=== PATIENT | female | born 1955 | race Caucasian/White ===

== ENCOUNTER 2020-08-24 16:06 | Inpatient (IN) | payer MEDICARE, OTHER ==
[~2020-08-24] VITALS: Ht 165.1 cm; Wt 45.4 kg
[2020-08-24] MEDS ORDERED: SODIUM CHLORIDE 0.9% 1000ML 1,000 ML IV STA (16:29)
[2020-08-24] MEDS ORDERED: ONDANSETRON HCL INJ 2MG/ML 2ML 2 MG/ML VIAL IV STA (16:29)
[2020-08-24] MEDS ORDERED: PANTOPRAZOLE 40 MG 10ML VIAL IV STA (16:29)
[2020-08-24] MEDS ORDERED: NALOXONE HCL INJ 0.4 MG/ML AMP ONE (16:35)
[2020-08-24] MEDS ORDERED: SODIUM CHLORIDE 0.9% 1000ML 1,000 ML ONE (16:35)
[2020-08-24] MEDS ORDERED: NALOXONE HCL INJ 0.4 MG/ML AMP IV ONE (16:45)
[2020-08-24 16:49] LABS: BASOPHILS % 0.1 % (0.0-1.0); EOSINOPHILS # (AUTO) 0.1 (0.0-0.4); EOSINOPHILS % 0.8 % (0.0-6.0); HEMATOCRIT 36.4 % (34.2-44.1); HEMOGLOBIN 12.2 g/dL (12.0-16.0); LYMPHOCYTES # (AUTO) 2.6 (1.0-3.2); LYMPHOCYTES % 18.5 % (18.0-39.1); MEAN CORPUSCULAR HEMOGLOBIN 34.2 pg (28-32); MEAN CORPUSCULAR HGB CONC 33.5 g/dL (31-35); MONOCYTES # (AUTO) 0.9 (0.2-0.8); MONOCYTES % 6.4 % (4.4-11.3); NEUTROPHILS # (AUTO) 10.2 (2.1-6.9); NEUTROPHILS % 72.4 % (38.7-80.0); PLATELET COUNT 745 x10e3/uL (140-360); RED BLOOD COUNT 3.57 x10e6/uL (3.6-5.1); RED CELL DISTRIBUTION WIDTH 13.5 % (11.7-14.4)
[2020-08-24 16:59] LABS: INR 0.75; PARTIAL THROMBOPLASTIN TIME 24.1 seconds (23.8-35.5); PROTHROMBIN TIME 10.9 seconds (11.9-14.5)
[2020-08-24 17:07] LABS: AMPHETAMINES SCREEN,URINE NEGATIVE (NEGATIVE); BENZODIAZEPINES SCREEN,URINE NEGATIVE (NEGATIVE); PHENCYCLIDINE SCREEN,URINE NEGATIVE (NEGATIVE)
[2020-08-24 17:09] LABS: ALANINE AMINOTRANSFERASE 583 IU/L (0-55); ALBUMIN 3.1 g/dL (3.5-5.0); ALBUMIN/GLOBULIN RATIO 0.6 (0.8-2.0); ALKALINE PHOSPHATASE 363 IU/L (40-150); ANION GAP 19.8 mmol/L (8-16); BLOOD UREA NITROGEN 38 mg/dL (7-26); BUN/CREATININE RATIO 57 (6-25); CALCIUM 9.4 mg/dL (8.4-10.2); CARBON DIOXIDE 22 mmol/L (22-29); CHLORIDE 98 mmol/L (98-107); CREATINE KINASE 49 IU/L (29-168); CREATININE, SERUM 0.67 mg/dL (0.57-1.11); EST GLOMERULAR FILTRATION RATE > 60 ML/MIN (60-); GLUCOSE 94 mg/dL (74-118); MAGNESIUM 2.2 MG/DL (1.3-2.1); POTASSIUM 3.8 mmol/L (3.5-5.1); SODIUM 136 mmol/L (136-145)
[2020-08-24 17:11] LABS: CLARITY,URINE HAZY (CLEAR); COLOR,URINE YELLOW (YELLOW); KETONES,URINE NEGATIVE (NEGATIVE); LEUKOCYTE ESTERASE ,URINE NEGATIVE (NEGATIVE); NITRITE,URINE NEGATIVE (NEGATIVE); PROTEIN,URINE DIPSTICK TRACE (NEGATIVE); URINE UROBILINOGEN 1 mg/dL (0.2 - 1)
[2020-08-24 17:12] LABS: BACTERIA,URINE FEW /HPF; EPITHELIAL CELLS,URINE MODERATE /LPF; RBC,URINE 0-5 /HPF (0-5); WBC,URINE (MAN) 0-5 /HPF (0-5)
[2020-08-24 17:15] LABS: B-TYPE NATRIURETIC PEPTIDE2 32.2 pg/mL (0-100)
[2020-08-24] MEDS ORDERED: NALOXONE HCL 2MG/2 ML SYRINGE IV ONE (18:00)
[2020-08-24] MEDS ORDERED: AZITHROMYCIN 500MG/NS 250 ML 250 ML IV STA (18:11)
[2020-08-24] MEDS ORDERED: CEFTRIAXONE SOD 1 GM/50 ML BAG IV ONE (18:15)
[2020-08-24] MEDS ORDERED: ONDANSETRON HCL INJ 2MG/ML 2ML 2 MG/ML VIAL IV PRN (18:30)
[2020-08-24] MEDS ORDERED: CEFTRIAXONE SOD 1 GM in SODIUM CHLORIDE 0.9% 50ML 50 ML IV ONE (18:30)
[2020-08-24] MEDS: SODIUM CHLORIDE 0.9% 1000ML 1,000 ML IV SCH (18:37)
[2020-08-24] MEDS: CEFTRIAXONE SOD 1 GM/50 ML BAG IV SCH (18:38)
[2020-08-24] MEDS: AZITHROMYCIN 500MG/SOD CHL 0.9% 250ML BAG IV SCH (18:38)
[2020-08-24 21:23] VITALS: BP 96/56
[2020-08-24 21:55] LABS: SALICYLATE < 0.2 mg/dL (0-30)
[2020-08-24 22:00] VITALS: BP 96/56
[2020-08-24 23:45] VITALS: BP 88/50
[2020-08-25] VITALS (9 sets, daily range): BP systolic 88–136; BP diastolic 60–85
[2020-08-25] MEDS: SODIUM CHLORIDE 0.9% 1000ML 1,000 ML IV SCH ×2 (02:30→05:39)
[2020-08-25 03:29] LABS: CREATINE KINASE MB 2.9 ng/mL (0-5.0)
[2020-08-25 06:14] LABS: BASOPHILS % 0.2 % (0.0-1.0); EOSINOPHILS # (AUTO) 0.1 (0.0-0.4); EOSINOPHILS % 0.8 % (0.0-6.0); HEMATOCRIT 34.8 % (34.2-44.1); HEMOGLOBIN 10.7 g/dL (12.0-16.0); LYMPHOCYTES # (AUTO) 1.8 (1.0-3.2); LYMPHOCYTES % 15.5 % (18.0-39.1); MEAN CORPUSCULAR HGB CONC 30.7 g/dL (31-35); MEAN CORPUSCULAR VOLUME 110.5 fL (81-99); MONOCYTES # (AUTO) 0.9 (0.2-0.8); MONOCYTES % 7.6 % (4.4-11.3); NEUTROPHILS # (AUTO) 8.8 (2.1-6.9); PLATELET COUNT 624 x10e3/uL (140-360); RED BLOOD COUNT 3.15 x10e6/uL (3.6-5.1); RED CELL DISTRIBUTION WIDTH 14.1 % (11.7-14.4)
[2020-08-25 06:38] LABS: ALANINE AMINOTRANSFERASE 427 IU/L (0-55); ALBUMIN 2.5 g/dL (3.5-5.0); ALBUMIN/GLOBULIN RATIO 0.6 (0.8-2.0); ALKALINE PHOSPHATASE 397 IU/L (40-150); BLOOD UREA NITROGEN 25 mg/dL (7-26); BUN/CREATININE RATIO 44 (6-25); CALCIUM 8.4 mg/dL (8.4-10.2); CARBON DIOXIDE 18 mmol/L (22-29); CHLORIDE 108 mmol/L (98-107); CREATININE, SERUM 0.57 mg/dL (0.57-1.11); EST GLOMERULAR FILTRATION RATE > 60 ML/MIN (60-); GLUCOSE 65 mg/dL (74-118); SODIUM 140 mmol/L (136-145)
[2020-08-25] MEDS ORDERED: HYDRALAZINE HCL 20 MG/ML VIAL IV PRN (10:45)
[2020-08-25] MEDS: LIDOCAINE 4% PATCH TP SCH ×2 (11:00→18:39)
[2020-08-25] MEDS ORDERED: LOSARTAN POTASS25 MG PO (11:56)
[2020-08-25] MEDS ORDERED: ATORVASTATIN CA20 MG PO (11:56)
[2020-08-25] MEDS ORDERED: ALLER-TEC D 5-1 EACH PO (11:56)
[2020-08-25] MEDS ORDERED: SYMBICORT 16010.2 GM INH (11:56)
[2020-08-25] MEDS ORDERED: HYGROTON25 MG PO (12:09)
[2020-08-25] MEDS ORDERED: XTAMPZA ER18 MG PO (12:09)
[2020-08-25] MEDS ORDERED: COLLAGENASE1 EACH ×2 (12:09)
[2020-08-25] MEDS ORDERED: HYDROCODON-ACE1 EAC9 PO (12:09)
[2020-08-25] MEDS ORDERED: ETODOLAC300 MG PO (12:09)
[2020-08-25] MEDS ORDERED: BUTALBIT-ACETA1 EACH PO (12:09)
[2020-08-25] MEDS ORDERED: MUPIROCIN22 GM TOP (12:09)
[2020-08-25] MEDS ORDERED: BACLOFEN10 MG PO (12:09)
[2020-08-25] MEDS ORDERED: LIDOPATCH1 EACH TOP (12:09)
[2020-08-25] MEDS ORDERED: SILVADENE20 GM TOP (12:09)
[2020-08-25] MEDS ORDERED: NARCAN4 MG (12:09)
[2020-08-25 12:48] LABS: ANISOCYTOSIS SLIGHT; PLATELET ESTIMATE MARKEDLY INCREASED; PLATELET MORPHOLOGY COMMENT NORMAL; POIKILOCYTOSIS SLIGHT; RBC MORPHOLOGY COMMENT ABNORMAL
[2020-08-25 15:43] LABS: CREATINE KINASE MB 2.6 ng/mL (0-5.0)
[2020-08-25] MEDS: IBUPROFEN 600 MG TAB PO PRN ×2 (16:10→22:09)
[2020-08-25] MEDS: ENOXAPARIN SOD INJ 40 MG/0.4 ML SYR SC SCH (18:39)
[2020-08-25] MEDS: FAMOTIDINE 20 MG TAB PO SCH (18:39)
[2020-08-25] MEDS: AZITHROMYCIN 500MG/SOD CHL 0.9% 250ML BAG IV SCH (19:24)
[2020-08-25] MEDS ORDERED: PSEUDOEPHEDRINE PO SCH (21:00)
[2020-08-25] MEDS ORDERED: CETIRIZINE HCL PO SCH (21:00)
[2020-08-25] MEDS: ATORVASTATIN 40 MG TAB PO SCH (21:29)
[2020-08-25] MEDS: CEFTRIAXONE SOD 1 GM/50 ML BAG IV SCH (21:41)
[2020-08-25] MEDS ORDERED: SODIUM CHLORIDE 0.9% 50ML 50 ML ONE (21:49)
[2020-08-25] MEDS ORDERED: CEFTRIAXONE SOD 1 GM VIAL ONE (21:49)
[2020-08-25] MEDS: BUDESONIDE/FORMOTEROL 160/4.5MCG INHALER INH SCH (21:51)
[2020-08-25] MEDS ORDERED: BISACODYL 5 MG TAB EC PO ONE (22:00)
[2020-08-25] MEDS: MELATONIN 5 MG TABLET PO PRN (22:02)
[2020-08-26] VITALS (8 sets, daily range): BP systolic 72–143; BP diastolic 64–88
[2020-08-26 05:03] LABS: BASOPHILS % 0.3 % (0.0-1.0); EOSINOPHILS # (AUTO) 0.1 (0.0-0.4); EOSINOPHILS % 1.2 % (0.0-6.0); HEMATOCRIT 26.2 % (34.2-44.1); HEMOGLOBIN 8.4 g/dL (12.0-16.0); LYMPHOCYTES # (AUTO) 2.8 (1.0-3.2); LYMPHOCYTES % 25.9 % (18.0-39.1); MEAN CORPUSCULAR HEMOGLOBIN 33.7 pg (28-32); MEAN CORPUSCULAR HGB CONC 32.1 g/dL (31-35); MONOCYTES # (AUTO) 1.1 (0.2-0.8); MONOCYTES % 9.6 % (4.4-11.3); NEUTROPHILS # (AUTO) 6.8 (2.1-6.9); NEUTROPHILS % 62.2 % (38.7-80.0); PLATELET COUNT 531 x10e3/uL (140-360); RED BLOOD COUNT 2.49 x10e6/uL (3.6-5.1); RED CELL DISTRIBUTION WIDTH 14.2 % (11.7-14.4)
[2020-08-26 05:05] LABS: MEAN CORPUSCULAR VOLUME 105.2 fL (81-99)
[2020-08-26 05:34] LABS: ALANINE AMINOTRANSFERASE 213 IU/L (0-55); ALBUMIN 2.2 g/dL (3.5-5.0); ALBUMIN/GLOBULIN RATIO 0.7 (0.8-2.0); ALKALINE PHOSPHATASE 264 IU/L (40-150); ANION GAP 10.2 mmol/L (8-16); BLOOD UREA NITROGEN 23 mg/dL (7-26); BUN/CREATININE RATIO 41 (6-25); CALCIUM 7.6 mg/dL (8.4-10.2); CARBON DIOXIDE 22 mmol/L (22-29); CHLORIDE 108 mmol/L (98-107); CREATININE, SERUM 0.56 mg/dL (0.57-1.11); EST GLOMERULAR FILTRATION RATE > 60 ML/MIN (60-); GLUCOSE 99 mg/dL (74-118); POTASSIUM 3.2 mmol/L (3.5-5.1); SODIUM 137 mmol/L (136-145)
[2020-08-26] MEDS: FAMOTIDINE 20 MG TAB PO SCH ×2 (07:45→17:00)
[2020-08-26] MEDS ORDERED: POTASSIUM CHLORIDE 10MEQ EA PO ONE (08:45)
[2020-08-26] MEDS: OYST-CAL-D 500MG TABLET PO SCH (09:33)
[2020-08-26] MEDS: LOSARTAN POTASSIUM 25 MG TAB PO SCH (09:33)
[2020-08-26] MEDS ORDERED: LORATADINE 10 MG TAB PO ONE (10:30)
[2020-08-26] MEDS: LIDOCAINE 4% PATCH TP SCH (11:09)
[2020-08-26] MEDS ORDERED: LORAZEPAM INJ 2 MG/ML VIAL IV ONE (12:00)
[2020-08-26] MEDS ORDERED: SODIUM CHLORIDE 0.9% 50ML 50 ML ONE (14:58)
[2020-08-26] MEDS: COLLAGENASE 5 GM TUBE TOP SCH (17:15)
[2020-08-26] MEDS: ENOXAPARIN SOD INJ 40 MG/0.4 ML SYR SC SCH (17:15)
[2020-08-26] MEDS: CEFTRIAXONE SOD 1 GM in SODIUM CHLORIDE 0.9% 50ML 50 ML IV SCH (18:00)
[2020-08-26] MEDS: AZITHROMYCIN 500MG/SOD CHL 0.9% 250ML BAG IV SCH (18:33)
[2020-08-26] MEDS: BUDESONIDE/FORMOTEROL 160/4.5MCG INHALER INH SCH (19:05)
[2020-08-26] MEDS: ATORVASTATIN 40 MG TAB PO SCH (20:19)
[2020-08-26] MEDS: MELATONIN 5 MG TABLET PO PRN (22:39)
[2020-08-27] VITALS (7 sets, daily range): BP systolic 115–146; BP diastolic 72–84
[2020-08-27] MEDS: IBUPROFEN 600 MG TAB PO PRN ×2 (04:38→17:45)
[2020-08-27 06:40] LABS: BASOPHILS % 0.3 % (0.0-1.0); EOSINOPHILS # (AUTO) 0.1 (0.0-0.4); EOSINOPHILS % 0.9 % (0.0-6.0); HEMATOCRIT 26.6 % (34.2-44.1); HEMOGLOBIN 8.8 g/dL (12.0-16.0); LYMPHOCYTES # (AUTO) 2.4 (1.0-3.2); LYMPHOCYTES % 23.6 % (18.0-39.1); MEAN CORPUSCULAR HEMOGLOBIN 34.4 pg (28-32); MEAN CORPUSCULAR HGB CONC 33.1 g/dL (31-35); MEAN CORPUSCULAR VOLUME 103.9 fL (81-99); MONOCYTES # (AUTO) 0.9 (0.2-0.8); NEUTROPHILS # (AUTO) 6.7 (2.1-6.9); NEUTROPHILS % 65.7 % (38.7-80.0); PLATELET COUNT 509 x10e3/uL (140-360); RED BLOOD COUNT 2.56 x10e6/uL (3.6-5.1); RED CELL DISTRIBUTION WIDTH 13.9 % (11.7-14.4)
[2020-08-27] MEDS: BUDESONIDE/FORMOTEROL 160/4.5MCG INHALER INH SCH ×2 (07:00→20:49)
[2020-08-27 07:04] LABS: ALANINE AMINOTRANSFERASE 138 IU/L (0-55); ALBUMIN 2.2 g/dL (3.5-5.0); ALBUMIN/GLOBULIN RATIO 0.7 (0.8-2.0); ALKALINE PHOSPHATASE 212 IU/L (40-150); ANION GAP 10.9 mmol/L (8-16); BLOOD UREA NITROGEN 10 mg/dL (7-26); BUN/CREATININE RATIO 19 (6-25); CALCIUM 8.5 mg/dL (8.4-10.2); CARBON DIOXIDE 24 mmol/L (22-29); CHLORIDE 108 mmol/L (98-107); CREATININE, SERUM 0.52 mg/dL (0.57-1.11); EST GLOMERULAR FILTRATION RATE > 60 ML/MIN (60-); GLUCOSE 92 mg/dL (74-118); POTASSIUM 3.9 mmol/L (3.5-5.1); SODIUM 139 mmol/L (136-145)
[2020-08-27] MEDS: FAMOTIDINE 20 MG TAB PO SCH ×2 (07:30→16:38)
[2020-08-27] MEDS: COLLAGENASE 5 GM TUBE TOP SCH (09:00)
[2020-08-27] MEDS: LOSARTAN POTASSIUM 25 MG TAB PO SCH (09:00)
[2020-08-27] MEDS: OYST-CAL-D 500MG TABLET PO SCH (09:00)
[2020-08-27] MEDS: LORATADINE 10 MG TAB PO SCH (09:00)
[2020-08-27] MEDS: ACETAMINOPHEN 325 MG TAB PO PRN ×2 (09:04→20:49)
[2020-08-27] MEDS: LIDOCAINE 4% PATCH TP SCH (10:15)
[2020-08-27] MEDS ORDERED: BACLOFEN 10 MG TAB PO SCH (11:30)
[2020-08-27] MEDS: ENOXAPARIN SOD INJ 40 MG/0.4 ML SYR SC SCH (16:40)
[2020-08-27] MEDS ORDERED: SODIUM CHLORIDE 0.9% 250ML 250 ML ONE (16:48)
[2020-08-27] MEDS: CEFTRIAXONE SOD 1 GM in SODIUM CHLORIDE 0.9% 50ML 50 ML IV SCH (16:56)
[2020-08-27] MEDS: AZITHROMYCIN 500MG/SOD CHL 0.9% 250ML BAG IV SCH (17:53)
[2020-08-27] MEDS: ATORVASTATIN 40 MG TAB PO SCH (20:49)
[2020-08-27] MEDS: MELATONIN 5 MG TABLET PO PRN (20:52)
[2020-08-28] VITALS (9 sets, daily range): BP systolic 116–136; BP diastolic 75–87
[2020-08-28] MEDS: IBUPROFEN 600 MG TAB PO PRN (01:53)
[2020-08-28] MEDS ORDERED: SODIUM CHLORIDE 0.9% 250ML 250 ML ONE (02:11)
[2020-08-28 04:49] LABS: BASOPHILS % 0.2 % (0.0-1.0); EOSINOPHILS # (AUTO) 0.1 (0.0-0.4); EOSINOPHILS % 1.2 % (0.0-6.0); HEMATOCRIT 27.4 % (34.2-44.1); HEMOGLOBIN 9.1 g/dL (12.0-16.0); LYMPHOCYTES # (AUTO) 2.9 (1.0-3.2); MEAN CORPUSCULAR HGB CONC 33.2 g/dL (31-35); MEAN CORPUSCULAR VOLUME 102.2 fL (81-99); MONOCYTES # (AUTO) 0.8 (0.2-0.8); MONOCYTES % 7.8 % (4.4-11.3); NEUTROPHILS # (AUTO) 6.8 (2.1-6.9); NEUTROPHILS % 63.2 % (38.7-80.0); PLATELET COUNT 473 x10e3/uL (140-360); RED BLOOD COUNT 2.68 x10e6/uL (3.6-5.1); RED CELL DISTRIBUTION WIDTH 13.9 % (11.7-14.4)
[2020-08-28 05:08] LABS: ALANINE AMINOTRANSFERASE 96 IU/L (0-55); ALBUMIN 2.3 g/dL (3.5-5.0); ALBUMIN/GLOBULIN RATIO 0.7 (0.8-2.0); ALKALINE PHOSPHATASE 183 IU/L (40-150); ANION GAP 13.7 mmol/L (8-16); BLOOD UREA NITROGEN 14 mg/dL (7-26); BUN/CREATININE RATIO 29 (6-25); CALCIUM 8.3 mg/dL (8.4-10.2); CARBON DIOXIDE 23 mmol/L (22-29); CHLORIDE 107 mmol/L (98-107); CREATININE, SERUM 0.49 mg/dL (0.57-1.11); EST GLOMERULAR FILTRATION RATE > 60 ML/MIN (60-); GLUCOSE 96 mg/dL (74-118); MAGNESIUM 1.7 MG/DL (1.3-2.1); POTASSIUM 3.7 mmol/L (3.5-5.1); SODIUM 140 mmol/L (136-145)
[2020-08-28] MEDS: BUDESONIDE/FORMOTEROL 160/4.5MCG INHALER INH SCH (07:00)
[2020-08-28] MEDS: FAMOTIDINE 20 MG TAB PO SCH ×2 (07:30→16:56)
[2020-08-28] MEDS: OYST-CAL-D 500MG TABLET PO SCH (09:02)
[2020-08-28] MEDS: LORATADINE 10 MG TAB PO SCH (09:02)
[2020-08-28] MEDS: COLLAGENASE 5 GM TUBE TOP SCH (09:02)
[2020-08-28] MEDS: LOSARTAN POTASSIUM 25 MG TAB PO SCH (09:02)
[2020-08-28] MEDS: LIDOCAINE 4% PATCH TP SCH (11:00)
[2020-08-28] MEDS: ACETAMINOPHEN 325 MG TAB PO PRN (16:57)
[2020-08-28] MEDS: CEFTRIAXONE SOD 1 GM in SODIUM CHLORIDE 0.9% 50ML 50 ML IV SCH (17:11)
[2020-08-28] MEDS: AZITHROMYCIN 500MG/SOD CHL 0.9% 250ML BAG IV SCH (17:55)
[2020-08-28] MEDS: ATORVASTATIN 40 MG TAB PO SCH (19:49)
[2020-08-28] MEDS: MELATONIN 5 MG TABLET PO PRN (19:49)
[2020-08-29] VITALS (9 sets, daily range): BP systolic 134–162; BP diastolic 80–98
[2020-08-29] MEDS: BUDESONIDE/FORMOTEROL 160/4.5MCG INHALER INH SCH ×2 (07:00→19:45)
[2020-08-29] MEDS ORDERED: IBUPROFEN 800MG/ 200ML 200 ML IV ONE (07:25)
[2020-08-29] MEDS ORDERED: LIDOCAINE HCL (LTA) 4 ML SOLN ONE (07:25)
[2020-08-29] MEDS ORDERED: ACETAMINOPHEN 1000 MG/100 ML 100 ML IV ONE (07:25)
[2020-08-29] MEDS: FAMOTIDINE 20 MG TAB PO SCH ×2 (07:30→16:30)
[2020-08-29] MEDS ORDERED: VANCOMYCIN HCL 1 GM VIAL ONE (08:14)
[2020-08-29] MEDS ORDERED: LIDOCAINE 1% W/EPINEPHRINE 20 ML VIAL ONE (08:14)
[2020-08-29] MEDS ORDERED: THROMBIN FOR SOLN 5,000 UNIT VIAL ONE (08:14)
[2020-08-29] MEDS: COLLAGENASE 5 GM TUBE TOP SCH (09:00)
[2020-08-29] MEDS: LORATADINE 10 MG TAB PO SCH (09:00)
[2020-08-29] MEDS: LOSARTAN POTASSIUM 25 MG TAB PO SCH ×2 (09:00→14:45)
[2020-08-29] MEDS: OYST-CAL-D 500MG TABLET PO SCH (09:00)
[2020-08-29] MEDS: LIDOCAINE 4% PATCH TP SCH (11:00)
[2020-08-29] MEDS ORDERED: DEXAMETHASONE SOD PHOS INJ 4 MG/ML VIAL ONE ×2 (11:56→12:27)
[2020-08-29] MEDS ORDERED: MAGNESIUM/ALUMINUM/SIMETHICONE 30 ML UDC PO PRN (12:15)
[2020-08-29] MEDS ORDERED: ACETAMINOPHEN 325 MG TAB PO PRN (12:15)
[2020-08-29] MEDS ORDERED: CEPACOL SORE THROAT LOZENGES PO PRN (12:15)
[2020-08-29] MEDS ORDERED: PROMETHAZINE HCL (IM) 25 MG/ML VIAL IM PRN (12:15)
[2020-08-29] MEDS ORDERED: MORPHINE SULFATE 5 MG/ML VIAL IM PRN (12:15)
[2020-08-29] MEDS ORDERED: PROPOFOL IV EMULSION 10 MG/ML 20 ML VIAL ONE (12:27)
[2020-08-29] MEDS ORDERED: ONDANSETRON HCL INJ 2MG/ML 2ML 2 MG/ML VIAL ONE (12:27)
[2020-08-29] MEDS ORDERED: GLYCOPYRROLATE INJ 0.2 MG/ML VIAL ONE (12:27)
[2020-08-29] MEDS ORDERED: NEOSTIGMINE 1 MG/ML 10ML VIAL ONE (12:27)
[2020-08-29] MEDS ORDERED: ROCURONIUM BROMIDE 10 MG/ML 5ML VIAL IV ONE (12:27)
[2020-08-29] MEDS ORDERED: SEVOFLURANE INHAL SOLN 250 ML PEN BTL ONE (12:27)
[2020-08-29] MEDS ORDERED: LIDOCAINE HCL 2% LOCAL INJ 5 ML SDV VIAL INJ ONE (12:27)
[2020-08-29] MEDS ORDERED: FENTANYL CITRATE/PF 100MCG/2 ML INJ ONE ×2 (12:28→13:38)
[2020-08-29] MEDS ORDERED: HYDROMORPHONE 1MG/1ML INJ ONE (12:36)
[2020-08-29] MEDS ORDERED: MIDAZOLAM HCL 2 MG/2 ML VIAL ONE (13:38)
[2020-08-29] MEDS: CARISOPRODOL 350 MG TAB PO PRN ×2 (14:45→19:55)
[2020-08-29] MEDS: LACTATED RINGER'S 1,000 ML IV SCH ×2 (14:46→19:55)
[2020-08-29] MEDS: OXYCODONE/ACETAMINOPHEN 5-325 1 EACH TABLET PO PRN ×2 (16:30→20:35)
[2020-08-29] MEDS: CEFAZOLIN SOD 1 GM/NS 50ML 50 ML IV SCH (17:00)
[2020-08-29] MEDS: CEFTRIAXONE SOD 1 GM in SODIUM CHLORIDE 0.9% 50ML 50 ML IV SCH (17:35)
[2020-08-29] MEDS: AZITHROMYCIN 500MG/SOD CHL 0.9% 250ML BAG IV SCH (18:15)
[2020-08-29] MEDS: ATORVASTATIN 40 MG TAB PO SCH (19:55)
[2020-08-29] MEDS ORDERED: ZOLPIDEM TARTRATE 5 MG TAB PO PRN (21:00)
[2020-08-29] MEDS: HYDROMORPHONE 2MG/ML 2 MG/ML ML IV PRN (22:23)
[2020-08-29] MEDS: ONDANSETRON HCL INJ 2MG/ML 2ML 2 MG/ML VIAL IV PRN (22:24)
[2020-08-30 00:46] VITALS: BP 129/56
[2020-08-30] MEDS: OXYCODONE/ACETAMINOPHEN 5-325 1 EACH TABLET PO PRN ×4 (00:52→17:42)
[2020-08-30] MEDS: CEFAZOLIN SOD 1 GM/NS 50ML 50 ML IV SCH ×2 (01:18→10:33)
[2020-08-30] MEDS: CARISOPRODOL 350 MG TAB PO PRN ×3 (01:19→16:25)
[2020-08-30] MEDS: IBUPROFEN 600 MG TAB PO PRN (01:19)
[2020-08-30] MEDS: HYDROMORPHONE 2MG/ML 2 MG/ML ML IV PRN ×4 (03:05→15:44)
[2020-08-30] MEDS: LACTATED RINGER'S 1,000 ML IV SCH ×2 (04:55→13:15)
[2020-08-30] MEDS: ONDANSETRON HCL INJ 2MG/ML 2ML 2 MG/ML VIAL IV PRN (04:58)
[2020-08-30 05:00] LABS: BASOPHILS % 0.3 % (0.0-1.0); EOSINOPHILS % 0.1 % (0.0-6.0); HEMATOCRIT 27.2 % (34.2-44.1); HEMOGLOBIN 8.8 g/dL (12.0-16.0); LYMPHOCYTES % 19.4 % (18.0-39.1); MEAN CORPUSCULAR HEMOGLOBIN 33.6 pg (28-32); MEAN CORPUSCULAR HGB CONC 32.4 g/dL (31-35); MEAN CORPUSCULAR VOLUME 103.8 fL (81-99); MONOCYTES # (AUTO) 0.9 (0.2-0.8); MONOCYTES % 5.9 % (4.4-11.3); NEUTROPHILS # (AUTO) 11.3 (2.1-6.9); NEUTROPHILS % 73.7 % (38.7-80.0); PLATELET COUNT 436 x10e3/uL (140-360); RED BLOOD COUNT 2.62 x10e6/uL (3.6-5.1); RED CELL DISTRIBUTION WIDTH 14.1 % (11.7-14.4)
[2020-08-30 05:21] VITALS: BP 127/68
[2020-08-30 05:29] LABS: ALANINE AMINOTRANSFERASE 63 IU/L (0-55); ALBUMIN 2.7 g/dL (3.5-5.0); ALBUMIN/GLOBULIN RATIO 0.7 (0.8-2.0); ALKALINE PHOSPHATASE 154 IU/L (40-150); ANION GAP 13.4 mmol/L (8-16); BLOOD UREA NITROGEN 12 mg/dL (7-26); BUN/CREATININE RATIO 20 (6-25); CALCIUM 8.7 mg/dL (8.4-10.2); CARBON DIOXIDE 24 mmol/L (22-29); CHLORIDE 104 mmol/L (98-107); CREATININE, SERUM 0.59 mg/dL (0.57-1.11); EST GLOMERULAR FILTRATION RATE > 60 ML/MIN (60-); GLUCOSE 97 mg/dL (74-118); PHOSPHORUS 3.8 MG/DL (2.3-4.7); POTASSIUM 4.4 mmol/L (3.5-5.1); SODIUM 137 mmol/L (136-145)
[2020-08-30] MEDS: BUDESONIDE/FORMOTEROL 160/4.5MCG INHALER INH SCH (07:00)
[2020-08-30] MEDS: FAMOTIDINE 20 MG TAB PO SCH ×2 (07:43→17:43)
[2020-08-30] MEDS: OYST-CAL-D 500MG TABLET PO SCH (07:44)
[2020-08-30] MEDS: LORATADINE 10 MG TAB PO SCH (07:44)
[2020-08-30 07:45] VITALS: BP 129/80
[2020-08-30] MEDS: LOSARTAN POTASSIUM 25 MG TAB PO SCH (07:47)
[2020-08-30 09:11] VITALS: BP 129/80
[2020-08-30] MEDS: COLLAGENASE 5 GM TUBE TOP SCH (10:33)
[2020-08-30] MEDS: LIDOCAINE 4% PATCH TP SCH ×2 (10:33→11:00)
[2020-08-30 11:38] VITALS: BP 116/69
[2020-08-30 15:53] VITALS: BP 128/83
[2020-08-30] MEDS ORDERED: BACTRIM DS TAB1 EACH PO (17:11)
[2020-08-30] MEDS ORDERED: ONDANSETRON HCL 4 MG ORAL DISINTEGRATING TAB PO PRN (17:30)
[2020-08-30] MEDS: CEFTRIAXONE SOD 1 GM in SODIUM CHLORIDE 0.9% 50ML 50 ML IV SCH (17:53)
[2020-08-30] MEDS: AZITHROMYCIN 500MG/SOD CHL 0.9% 250ML BAG IV SCH (18:30)
== END 2020-08-30 20:28 | DRG 471 ==
LOC: ER 16:36 → ERHOLD 18:21 → IMCU 20:34
PROVIDERS: ADMIT Internal Medicine; ATTEND Internal Medicine
PROC: 0RG10K0 Fusion of Cervical Vertebral Joint with Nonautologous Tissue Substitute, Anterior Approach, Anterior Column, Open Approach (ICD-10-PCS; principal; 2020-08-29 11:00)
DX: M50.021 Cervical disc disorder at C4-C5 level with myelopathy (principal); L89.893 Pressure ulcer of other site, stage 3; J18.9 Pneumonia, unspecified organism; J96.00 Acute respiratory failure, unspecified whether with hypoxia or hypercapnia; J96.01 Acute respiratory failure with hypoxia; R53.2 Functional quadriplegia; M47.12 Other spondylosis with myelopathy, cervical region; N39.0 Urinary tract infection, site not specified; Z16.24 Resistance to multiple antibiotics; G95.89 Other specified diseases of spinal cord; L89.150 Pressure ulcer of sacral region, unstageable; L89.220 Pressure ulcer of left hip, unstageable; L89.210 Pressure ulcer of right hip, unstageable; L89.890 Pressure ulcer of other site, unstageable; L89.520 Pressure ulcer of left ankle, unstageable; L89.510 Pressure ulcer of right ankle, unstageable; L89.312 Pressure ulcer of right buttock, stage 2; R41.82 Altered mental status, unspecified; J44.9 Chronic obstructive pulmonary disease, unspecified; Z82.3 Family history of stroke; Z80.9 Family history of malignant neoplasm, unspecified; Z83.3 Family history of diabetes mellitus; M43.12 Spondylolisthesis, cervical region; Z76.5 Malingerer [conscious simulation]; B96.20 Unspecified Escherichia coli [E. coli] as the cause of diseases classified elsewhere; B96.89 Other specified bacterial agents as the cause of diseases classified elsewhere; K21.9 Gastro-esophageal reflux disease without esophagitis; T40.2X1A Poisoning by other opioids, accidental (unintentional), initial encounter; Z20.822 Contact with and (suspected) exposure to COVID-19
CPT/HCPCS: 36415; 70450; 71045; 71250; 72040; 72125; 72141; 72146; 74183; 77003; 78580; 80053; 80307; 80320; 80329; 81001; 82140; 82550; 82553; 83605; 83735; 83880; 84100; 84484; 85025; 85379; 85610; 85730; 87040; 87071; 87086; 87186; 87205; 88304; 88311; 93005; 96360; 97139; 99251; 99284; A9540; C1713; J0456; J0690; J0696; J1100; J1170; J1650; J2001; J2060; J2250; J2310; J2405; J2710; J3010; J3370; J7030; J7050; J7121; U0002

== ENCOUNTER 2024-07-11 11:19 | Inpatient (IN) | payer MEDICARE, OTHER ==
[~2024-07-11] VITALS: Ht 165.1 cm; Wt 65.8 kg
[~2024-07-11 11:19] MED LIST: ALLER-TEC D 5-1 EACH PO; ATORVASTATIN CA20 MG PO; BACLOFEN10 MG PO; BACTRIM DS TAB1 EACH PO; BUTALBIT-ACETA1 EACH PO; COLLAGENASE1 EACH; ETODOLAC300 MG PO; HYDROCODON-ACE1 EAC9 PO; HYGROTON25 MG PO; LIDOPATCH1 EACH TOP; LOSARTAN POTASS25 MG PO; MUPIROCIN22 GM TOP; NARCAN4 MG; SILVADENE20 GM TOP; SYMBICORT 16010.2 GM INH; XTAMPZA ER18 MG PO
[2024-07-11 11:41] VITALS: TEMP 98.5
[2024-07-11] MEDS ORDERED: SODIUM CHLORIDE FLUSH 10 ML SYR IV PRN (12:00)
[2024-07-11] MEDS: SODIUM CHLORIDE 0.9% 250ML 250 ML IV ONE (13:01)
[2024-07-11 13:03] LABS: BASOPHILS % 0.3 % (0.0-1.0); HEMATOCRIT 34.8 % (34.2-44.1); HEMOGLOBIN 11.8 g/dL (12.0-16.0); MEAN CORPUSCULAR HEMOGLOBIN 30.7 pg (28-32); MEAN CORPUSCULAR HGB CONC 33.9 g/dL (31-35); MEAN CORPUSCULAR VOLUME 90.6 fL (81-99); MONOCYTES # (AUTO) 0.6 (0.2-0.8); NEUTROPHILS # (AUTO) 9.3 (2.1-6.9); NEUTROPHILS % 84.3 % (38.7-80.0); PLATELET COUNT 346 x10e3/uL (140-360); RED BLOOD COUNT 3.84 x10e6/uL (3.6-5.1); RED CELL DISTRIBUTION WIDTH 15.2 % (11.7-14.4); WHITE BLOOD COUNT 11.09 x10e3/uL (4.8-10.8)
[2024-07-11 13:17] LABS: PROTHROMBIN TIME 13.8 seconds (11.9-14.5)
[2024-07-11 13:18] LABS: PARTIAL THROMBOPLASTIN TIME 26.9 seconds (23.8-35.5)
[2024-07-11 13:26] LABS: ALBUMIN 2.6 g/dL (3.5-5.0); ALBUMIN/GLOBULIN RATIO 0.7 (0.8-2.0); ANION GAP 16.5 mmol/L (8-16); BILIRUBIN,TOTAL 0.4 mg/dL (0.2-1.2); CALCIUM 8.2 mg/dL (8.4-10.2); CREATININE, SERUM 1.52 mg/dL (0.57-1.11); TOTAL PROTEIN 6.6 g/dL (6.5-8.1)
[2024-07-11 13:34] LABS: POTASSIUM 2.5 mmol/L (3.5-5.1)
[2024-07-11 13:38] LABS: BILIRUBIN,URINE NEGATIVE (NEGATIVE); CLARITY,URINE CLOUDY (CLEAR); COLOR,URINE YELLOW (YELLOW); GLUCOSE, URINE NEGATIVE (NEGATIVE); KETONES,URINE NEGATIVE (NEGATIVE); LEUKOCYTE ESTERASE ,URINE SMALL (NEGATIVE); NITRITE,URINE POSITIVE (NEGATIVE); PH,URINE 6 (5 - 7); PROTEIN,URINE DIPSTICK >=300 (NEGATIVE); URINE UROBILINOGEN 0.2 mg/dL (0.2 - 1)
[2024-07-11 14:07] LABS: BACTERIA,URINE RARE /HPF; EPITHELIAL CELLS,URINE FEW /LPF; RBC,URINE >50 /HPF (0-5)
[2024-07-11] MEDS: POTASSIUM CHLORIDE 20 MEQ TAB CR PO STA ×2 (14:39→23:54)
[2024-07-11] MEDS: POTASSIUM CHLORIDE 20MEQ/100ML 200 ML IV ONE (14:42)
[2024-07-11] MEDS: SODIUM CHLORIDE 0.9% 1000ML 1,000 ML IV ONE (14:56)
[2024-07-11] MEDS: HYDROCODONE/APAP 5MG-325MG TAB PO ONE (16:17)
[2024-07-11 16:19] VITALS: PULSE 89; RESP 22
[2024-07-11] MEDS ORDERED: ONDANSETRON HCL INJ 2MG/ML 2ML 2 MG/ML VIAL IV PRN (16:30)
[2024-07-11] MEDS ORDERED: LACTATED RINGER'S 1,000 ML INJ ONE (16:30)
[2024-07-11] MEDS: Vancomycin IV 1 GM in SODIUM CHLORIDE 0.9% 250ML 250 ML IV SCH (18:19)
[2024-07-11 20:00] VITALS: BP 171/99; PULSE 85; RESP 22; TEMP 97.3; O2SAT 100
[2024-07-11] MEDS: LACTATED RINGER'S 1,000 ML INJ ONE (21:10)
[2024-07-11] MEDS ORDERED: HYDRALAZINE HCL 20 MG/ML VIAL IV PRN (22:00)
[2024-07-11] MEDS ORDERED: DOCUSATE SODIUM 100 MG CAP PO PRN (22:00)
[2024-07-11] MEDS ORDERED: LIDOCAINE 4% PATCH TP PRN (22:00)
[2024-07-11] MEDS ORDERED: DEXTROSE 50% SYRINGE 50 ML IV PRN (22:00)
[2024-07-11] MEDS: LACTATED RINGER'S 1,000 ML INJ SCH (23:54)
[2024-07-11] MEDS: BISACODYL 5 MG TAB EC PO ONE (23:54)
[2024-07-11] MEDS: SODIUM BICARBONATE 650 MG TAB PO SCH (23:54)
[2024-07-12] VITALS (16 sets, daily range): BP systolic 116–177; BP diastolic 75–98; PULSE 83–91; RESP 18–21; TEMP 96.5–97.9; O2SAT 97–100
[2024-07-12] MEDS: BISACODYL 5 MG TAB EC PO ONE ×4 (00:38→23:31)
[2024-07-12] MEDS: ALBUTEROL/IPRATROPIUM 3 ML NEB NEB PRN (00:45)
[2024-07-12 02:19] LABS: ANION GAP 15.3 mmol/L (8-16); CALCIUM 8.1 mg/dL (8.4-10.2); CREATININE, SERUM 1.46 mg/dL (0.57-1.11)
[2024-07-12 02:20] LABS: % IRON SATURATION 14 % (15-50); IRON 34 ug/dL (50-170); TOTAL IRON BINDING CAPACITY 251 ug/dL (261-478); TRANSFERRIN 179 mg/dL (180-382)
[2024-07-12 02:28] LABS: POTASSIUM 3.3 mmol/L (3.5-5.1)
[2024-07-12 02:55] LABS: FOLATE 11.1 ng/mL (7.0-15.4)
[2024-07-12] MEDS: CITRATE OF MAGNESIA 300ML BOTTLE PO ONE ×2 (05:38→08:47)
[2024-07-12] MEDS: PANTOPRAZOLE SOD 40 MG TABEC PO SCH (08:45)
[2024-07-12] MEDS: IRON SUCROSE 100 MG in SODIUM CHLORIDE 0.9% 100 ML IV SCH (08:46)
[2024-07-12] MEDS: HYDROCODONE/APAP 5MG-325MG TAB PO PRN (08:46)
[2024-07-12] MEDS ORDERED: IOPAMIDOL 370 MG/ML 100 ML INFUS..BTL INJ ONE (10:21)
[2024-07-12] MEDS ORDERED: SODIUM CHLORIDE 0.9% 100 ML ONE (10:21)
[2024-07-12 15:19] LABS: CHOLESTEROL 111 MD/DL (0-199); HDL CHOLESTEROL 22 MG/DL (40-60); LDL CHOLESTEROL 59 MG/DL (60-130); MAGNESIUM 1.9 MG/DL (1.3-2.1); PHOSPHORUS 3.7 MG/DL (2.3-4.7); TRIGLYCERIDES 148 MG/DL (0-149)
[2024-07-12 15:35] LABS: BASOPHILS % 0.2 % (0.0-1.0); HEMATOCRIT 34.2 % (34.2-44.1); HEMOGLOBIN 11.3 g/dL (12.0-16.0); LYMPHOCYTES # (AUTO) 1.2 (1.0-3.2); LYMPHOCYTES % 8.2 % (18.0-39.1); MEAN CORPUSCULAR HEMOGLOBIN 30.6 pg (28-32); MEAN CORPUSCULAR VOLUME 92.7 fL (81-99); MONOCYTES # (AUTO) 1.3 (0.2-0.8); NEUTROPHILS # (AUTO) 11.4 (2.1-6.9); NEUTROPHILS % 80.9 % (38.7-80.0); PLATELET COUNT 367 x10e3/uL (140-360); RED BLOOD COUNT 3.69 x10e6/uL (3.6-5.1); RED CELL DISTRIBUTION WIDTH 15.7 % (11.7-14.4); WHITE BLOOD COUNT 14.07 x10e3/uL (4.8-10.8)
[2024-07-12 15:59] LABS: ANION GAP 18.1 mmol/L (8-16); CALCIUM 8.4 mg/dL (8.4-10.2); CREATININE, SERUM 1.37 mg/dL (0.57-1.11)
[2024-07-12] MEDS ORDERED: SODIUM BICARBONATE 8.4% INJ 50 ML SYR IV ONE (16:00)
[2024-07-12 16:01] LABS: POTASSIUM 3.1 mmol/L (3.5-5.1)
[2024-07-12] MEDS: ENOXAPARIN SOD INJ 40 MG/0.4 ML SYR SC SCH (17:00)
[2024-07-12] MEDS: SODIUM BICARBONATE 8.4% INJ 50 ML SYR IV STA (17:04)
[2024-07-12] MEDS: POTASSIUM CHLORIDE 20 MEQ TAB CR PO STA (17:05)
[2024-07-12] MEDS: SODIUM BICARBONATE 8.4% VIAL 150 ML in DEXTROSE 5% 1,000 ML IV ONE (17:27)
[2024-07-12] MEDS: POTASSIUM CHLORIDE 20 MEQ TAB CR PO ONE (20:52)
[2024-07-13] VITALS (12 sets, daily range): BP systolic 108–139; BP diastolic 71–95; PULSE 76–105; RESP 18–24; TEMP 97.1–98.1; O2SAT 96–100
[2024-07-13] MEDS: BISACODYL 5 MG TAB EC PO ONE ×4 (00:02→08:42)
[2024-07-13] MEDS: MELATONIN 5 MG TABLET PO PRN (00:06)
[2024-07-13] MEDS: SIMETHICONE 80 MG CHEW PO PRN (00:06)
[2024-07-13] MEDS ORDERED: BISACODYL 5 MG TAB EC PO ONE (01:00)
[2024-07-13] MEDS: CITRATE OF MAGNESIA 300ML BOTTLE PO ONE ×2 (05:16→08:15)
[2024-07-13 05:29] LABS: BASOPHILS % 0.2 % (0.0-1.0); EOSINOPHILS % 0.2 % (0.0-6.0); HEMATOCRIT 28.3 % (34.2-44.1); HEMOGLOBIN 9.6 g/dL (12.0-16.0); LYMPHOCYTES % 8.3 % (18.0-39.1); MEAN CORPUSCULAR HEMOGLOBIN 30.5 pg (28-32); MEAN CORPUSCULAR HGB CONC 33.9 g/dL (31-35); MEAN CORPUSCULAR VOLUME 89.8 fL (81-99); MONOCYTES # (AUTO) 1.2 (0.2-0.8); NEUTROPHILS # (AUTO) 9.8 (2.1-6.9); NEUTROPHILS % 79.5 % (38.7-80.0); PLATELET COUNT 341 x10e3/uL (140-360); RED BLOOD COUNT 3.15 x10e6/uL (3.6-5.1); RED CELL DISTRIBUTION WIDTH 15.4 % (11.7-14.4); WHITE BLOOD COUNT 12.26 x10e3/uL (4.8-10.8)
[2024-07-13 06:25] LABS: CREATININE, SERUM 1.19 mg/dL (0.57-1.11)
[2024-07-13] MEDS: POTASSIUM CHLORIDE 20 MEQ TAB CR PO PRN (08:51)
[2024-07-13] MEDS: METOCLOPRAMIDE HCL 10 MG/2ML VIAL IV SCH (12:18)
[2024-07-13] MEDS: KCL 20 MEQ PACKET/ ORAL SOLN PO STA (14:48)
[2024-07-13] MEDS: POTASSIUM CHLORIDE 20 MEQ TAB CR PO STA (15:01)
[2024-07-13] MEDS: PREDNISONE 20 MG TAB PO ONE (17:02)
[2024-07-13] MEDS: NYSTATIN 15 GM POWDER UD BTL TOP SCH (18:08)
[2024-07-13] MEDS: SALIVA SUBSTITUTE 45 ML LIQD MM PRN (18:09)
[2024-07-13] MEDS: KCL 20 MEQ PACKET/ ORAL SOLN NG ONE (22:08)
[2024-07-14] VITALS (12 sets, daily range): BP systolic 118–161; BP diastolic 78–120; PULSE 90–109; RESP 18–22; TEMP 97.7–98; O2SAT 92–100
[2024-07-14] MEDS: FUROSEMIDE INJ 10 MG/ML 4 ML VIAL IV ONE ×2 (00:43→00:56)
[2024-07-14] MEDS: CEFAZOLIN SODIUM 2 GM in SODIUM CHLORIDE 0.9% 100 ML IV SCH (00:43)
[2024-07-14] MEDS: SODIUM BICARBONATE 8.4% INJ 50 ML SYR IV STA ×2 (00:44→00:57)
[2024-07-14] MEDS: ENOXAPARIN SOD INJ 40 MG/0.4 ML SYR SC SCH (00:44)
[2024-07-14] MEDS: METOCLOPRAMIDE HCL 10 MG/2ML VIAL IV SCH (00:44)
[2024-07-14] MEDS: MAGNESIUM HYDROXIDE 30 ML UDC PO STA (00:45)
[2024-07-14] MEDS: ALBUTEROL/IPRATROPIUM 3 ML NEB NEB SCH (01:15)
[2024-07-14] MEDS: BUDESONIDE 0.25 MG/2 ML NEB NEB SCH (07:32)
[2024-07-14 09:04] LABS: BASOPHILS % 0.1 % (0.0-1.0); HEMATOCRIT 27.2 % (34.2-44.1); HEMOGLOBIN 9.4 g/dL (12.0-16.0); LYMPHOCYTES % 6.5 % (18.0-39.1); MEAN CORPUSCULAR HEMOGLOBIN 30.6 pg (28-32); MEAN CORPUSCULAR HGB CONC 34.6 g/dL (31-35); MEAN CORPUSCULAR VOLUME 88.6 fL (81-99); MONOCYTES # (AUTO) 0.7 (0.2-0.8); MONOCYTES % 4.5 % (4.4-11.3); NEUTROPHILS # (AUTO) 14.1 (2.1-6.9); NEUTROPHILS % 87.8 % (38.7-80.0); PLATELET COUNT 390 x10e3/uL (140-360); RED BLOOD COUNT 3.07 x10e6/uL (3.6-5.1); RED CELL DISTRIBUTION WIDTH 14.7 % (11.7-14.4); WHITE BLOOD COUNT 16.08 x10e3/uL (4.8-10.8)
[2024-07-14 09:33] LABS: ANION GAP 16.3 mmol/L (8-16); CREATININE, SERUM 1.04 mg/dL (0.57-1.11)
[2024-07-14 09:37] LABS: POTASSIUM 2.3 mmol/L (3.5-5.1)
[2024-07-14] MEDS: MAGNESIUM HYDROXIDE 30 ML UDC PO ONE (10:39)
[2024-07-14] MEDS: POTASSIUM CHLORIDE 20MEQ/100ML 100 ML IV SCH (15:50)
[2024-07-14] MEDS: POTASSIUM CHLORIDE 20MEQ/100ML 100 ML IV ONE (22:05)
[2024-07-15] VITALS (9 sets, daily range): BP systolic 119–137; BP diastolic 62–84; PULSE 62–106; RESP 18–20; TEMP 97–98.3; O2SAT 96–100
[2024-07-15 06:30] LABS: BASOPHILS # (AUTO) 0.1 (0.0-0.1); BASOPHILS % 0.3 % (0.0-1.0); EOSINOPHILS # (AUTO) 0.1 (0.0-0.4); EOSINOPHILS % 0.5 % (0.0-6.0); HEMOGLOBIN 10.4 g/dL (12.0-16.0); LYMPHOCYTES # (AUTO) 0.9 (1.0-3.2); LYMPHOCYTES % 4.8 % (18.0-39.1); MEAN CORPUSCULAR HGB CONC 33.5 g/dL (31-35); MEAN CORPUSCULAR VOLUME 92.3 fL (81-99); MONOCYTES # (AUTO) 0.7 (0.2-0.8); MONOCYTES % 3.7 % (4.4-11.3); NEUTROPHILS # (AUTO) 17.3 (2.1-6.9); PLATELET COUNT 372 x10e3/uL (140-360); RED BLOOD COUNT 3.36 x10e6/uL (3.6-5.1); RED CELL DISTRIBUTION WIDTH 14.9 % (11.7-14.4); WHITE BLOOD COUNT 19.36 x10e3/uL (4.8-10.8)
[2024-07-15 06:50] LABS: ANION GAP 22.3 mmol/L (8-16); CALCIUM 8.2 mg/dL (8.4-10.2); CREATININE, SERUM 0.91 mg/dL (0.57-1.11)
[2024-07-15 07:12] LABS: POTASSIUM 3.3 mmol/L (3.5-5.1)
[2024-07-15] MEDS: DEXTROSE 5%/0.9% SOD CHL 1,000 ML IV SCH (10:24)
[2024-07-15] MEDS: POTASSIUM CHLORIDE 20 MEQ TAB CR PO STA (10:27)
[2024-07-15] MEDS: LEVALBUTEROL HCL SOLN NEBU 1.25 MG/3 ML NEB INH ONE (12:53)
[2024-07-15] MEDS ORDERED: METRONIDAZOLE 500MG/NS 100ML 100 ML IV SCH (14:15)
[2024-07-15] MEDS: PREDNISONE 20 MG TAB PO ONE (16:24)
[2024-07-15] MEDS: Morphine 2mg Syringe 2 MG/ML SYR IV ONE (16:24)
[2024-07-15 17:28] LABS: INR 1.41
[2024-07-15 17:29] LABS: PARTIAL THROMBOPLASTIN TIME 49.2 seconds (23.8-35.5)
[2024-07-15 17:32] LABS: ANION GAP 11.7 mmol/L (8-16); CALCIUM 7.5 mg/dL (8.4-10.2); CREATININE, SERUM 0.82 mg/dL (0.57-1.11)
[2024-07-15 17:37] LABS: POTASSIUM 2.7 mmol/L (3.5-5.1)
[2024-07-15] MEDS: POTASSIUM CHLORIDE 20MEQ/100ML 100 ML IV SCH (18:09)
[2024-07-15] MEDS: VANCOMYCIN HCL 125 MG CAPSULE PO SCH (18:10)
[2024-07-15 21:02] LABS: CDIFF TOX QUIK CHEK NEGATIVE (NEGATIVE)
[2024-07-15 21:07] LABS: CDIFF AG QUIK CHEK **POSITIVE** (NEGATIVE)
[2024-07-16] VITALS (10 sets, daily range): BP systolic 108–149; BP diastolic 47–93; PULSE 66–100; RESP 18–20; TEMP 97.4–98.3; O2SAT 96–100
[2024-07-16 06:09] LABS: BASOPHILS # (AUTO) 0.1 (0.0-0.1); BASOPHILS % 0.3 % (0.0-1.0); EOSINOPHILS % 0.2 % (0.0-6.0); HEMATOCRIT 25.3 % (34.2-44.1); HEMOGLOBIN 8.4 g/dL (12.0-16.0); LYMPHOCYTES # (AUTO) 0.5 (1.0-3.2); LYMPHOCYTES % 2.1 % (18.0-39.1); MEAN CORPUSCULAR HEMOGLOBIN 31.2 pg (28-32); MEAN CORPUSCULAR HGB CONC 33.2 g/dL (31-35); MEAN CORPUSCULAR VOLUME 94.1 fL (81-99); MONOCYTES # (AUTO) 0.7 (0.2-0.8); MONOCYTES % 2.7 % (4.4-11.3); NEUTROPHILS # (AUTO) 22.4 (2.1-6.9); NEUTROPHILS % 91.7 % (38.7-80.0); PLATELET COUNT 300 x10e3/uL (140-360); RED BLOOD COUNT 2.69 x10e6/uL (3.6-5.1); RED CELL DISTRIBUTION WIDTH 15.3 % (11.7-14.4); WHITE BLOOD COUNT 24.46 x10e3/uL (4.8-10.8)
[2024-07-16 06:46] LABS: CALCIUM 7.4 mg/dL (8.4-10.2); CREATININE, SERUM 0.84 mg/dL (0.57-1.11)
[2024-07-16 10:33] LABS: BAND NEUTROPHILS % (MANUAL) 8 %; HYPOCHROMASIA SLIGHT; MONOCYTES % (MANUAL) 1 % (3.4-9.0); NEUTROPHILS % (MANUAL) 91 % (40-74); PLATELET ESTIMATE ADEQUATE; PLATELET MORPHOLOGY COMMENT NORMAL
[2024-07-16] MEDS ORDERED: DEXTROSE 50% SYRINGE 50 ML IV PRN (13:30)
[2024-07-16] MEDS: METRONIDAZOLE 500MG/NS 100ML 100 ML IV SCH (15:22)
[2024-07-16] MEDS: SIMETHICONE 80 MG CHEW PO ONE (15:23)
[2024-07-16] MEDS: HYDROCODONE/APAP 10MG-325MG TAB PO PRN (15:24)
[2024-07-16] MEDS: INSULIN LISPRO 100 UNIT/1 ML 3ML VIAL SQ SCH (16:30)
[2024-07-16] MEDS: PEG (High)/E-LYTE SOLN 4,000 ML BTL PO ONE (18:29)
[2024-07-16] MEDS: BENZONATATE 100 MG CAP PO PRN (21:35)
[2024-07-17] VITALS (12 sets, daily range): BP systolic 105–131; BP diastolic 71–90; PULSE 101–118; RESP 16–20; TEMP 97.7–98.5; O2SAT 95–99
[2024-07-17] MEDS: ACETYLCYSTEINE 20% INHAL SOLN 30 ML VIAL INH SCH
[2024-07-17] MEDS: ACETYLCYSTEINE 200 MG/ML 4 ML VIAL INH SCH (03:42)
[2024-07-17] MEDS: LEVALBUTEROL HCL SOLN NEBU 1.25 MG/3 ML NEB INH PRN (03:42)
[2024-07-17 06:58] LABS: BASOPHILS % 0.1 % (0.0-1.0); EOSINOPHILS % 0.1 % (0.0-6.0); HEMATOCRIT 26.3 % (34.2-44.1); HEMOGLOBIN 8.7 g/dL (12.0-16.0); LYMPHOCYTES % 4.9 % (18.0-39.1); MEAN CORPUSCULAR HEMOGLOBIN 31.1 pg (28-32); MEAN CORPUSCULAR HGB CONC 33.1 g/dL (31-35); MEAN CORPUSCULAR VOLUME 93.9 fL (81-99); MONOCYTES # (AUTO) 0.7 (0.2-0.8); MONOCYTES % 3.6 % (4.4-11.3); NEUTROPHILS # (AUTO) 17.8 (2.1-6.9); NEUTROPHILS % 89.8 % (38.7-80.0); PLATELET COUNT 323 x10e3/uL (140-360); RED CELL DISTRIBUTION WIDTH 15.9 % (11.7-14.4); WHITE BLOOD COUNT 19.82 x10e3/uL (4.8-10.8)
[2024-07-17 07:13] LABS: ANION GAP 10.9 mmol/L (8-16); CREATININE, SERUM 0.8 mg/dL (0.57-1.11); POTASSIUM 3.9 mmol/L (3.5-5.1)
[2024-07-17] MEDS: CITRATE OF MAGNESIA 300ML BOTTLE PO ONE ×2 (08:05→08:34)
[2024-07-17] MEDS: DEXTROSE 5%/0.9% SOD CHL 1,000 ML IV SCH (14:27)
[2024-07-17] MEDS: CHLORASEPTIC SPRAY 177 ML BTL MM PRN (16:40)
[2024-07-17] MEDS: BISACODYL 5 MG TAB EC PO ONE (23:03)
[2024-07-18] VITALS (10 sets, daily range): BP systolic 90–116; BP diastolic 65–81; PULSE 80–116; RESP 18–22; TEMP 97.6–98.2; O2SAT 97–100
[2024-07-18] MEDS: BISACODYL 5 MG TAB EC PO ONE ×2 (00:08→01:08)
[2024-07-18 06:47] LABS: BASOPHILS % 0.2 % (0.0-1.0); EOSINOPHILS % 0.2 % (0.0-6.0); HEMATOCRIT 25.3 % (34.2-44.1); HEMOGLOBIN 8.2 g/dL (12.0-16.0); LYMPHOCYTES # (AUTO) 1.1 (1.0-3.2); LYMPHOCYTES % 6.3 % (18.0-39.1); MEAN CORPUSCULAR HEMOGLOBIN 30.8 pg (28-32); MEAN CORPUSCULAR HGB CONC 32.4 g/dL (31-35); MEAN CORPUSCULAR VOLUME 95.1 fL (81-99); MONOCYTES # (AUTO) 1.1 (0.2-0.8); MONOCYTES % 6.4 % (4.4-11.3); NEUTROPHILS # (AUTO) 15.2 (2.1-6.9); NEUTROPHILS % 85.6 % (38.7-80.0); PLATELET COUNT 294 x10e3/uL (140-360); RED BLOOD COUNT 2.66 x10e6/uL (3.6-5.1); RED CELL DISTRIBUTION WIDTH 15.9 % (11.7-14.4); WHITE BLOOD COUNT 17.75 x10e3/uL (4.8-10.8)
[2024-07-18 07:03] LABS: ANION GAP 11.5 mmol/L (8-16); CALCIUM 7.6 mg/dL (8.4-10.2); CREATININE, SERUM 0.81 mg/dL (0.57-1.11); POTASSIUM 3.5 mmol/L (3.5-5.1)
[2024-07-18] MEDS: ACETAMINOPHEN 325 MG TAB PO PRN (09:27)
[2024-07-18] MEDS ORDERED: PROPOFOL IV EMULSION 50 ML IV ONE (15:27)
[2024-07-18] MEDS ORDERED: LIDOCAINE HCL 2% LOCAL INJ 5 ML SDV VIAL INJ ONE (15:27)
[2024-07-18] MEDS: Doxycycline IV 100 MG in SODIUM CHLORIDE 0.9% 100 ML IV SCH (18:47)
[2024-07-19] VITALS (12 sets, daily range): BP systolic 100–124; BP diastolic 61–84; PULSE 83–110; RESP 18–22; TEMP 97.5–98.4; O2SAT 96–100
[2024-07-19 05:57] LABS: BASOPHILS % 0.2 % (0.0-1.0); EOSINOPHILS # (AUTO) 0.1 (0.0-0.4); EOSINOPHILS % 0.5 % (0.0-6.0); HEMATOCRIT 26.5 % (34.2-44.1); HEMOGLOBIN 8.2 g/dL (12.0-16.0); LYMPHOCYTES # (AUTO) 1.3 (1.0-3.2); LYMPHOCYTES % 8.5 % (18.0-39.1); MEAN CORPUSCULAR HEMOGLOBIN 30.6 pg (28-32); MEAN CORPUSCULAR HGB CONC 30.9 g/dL (31-35); MEAN CORPUSCULAR VOLUME 98.9 fL (81-99); MONOCYTES % 6.3 % (4.4-11.3); NEUTROPHILS % 83.4 % (38.7-80.0); PLATELET COUNT 279 x10e3/uL (140-360); RED BLOOD COUNT 2.68 x10e6/uL (3.6-5.1); RED CELL DISTRIBUTION WIDTH 16.4 % (11.7-14.4); WHITE BLOOD COUNT 15.51 x10e3/uL (4.8-10.8)
[2024-07-19 06:22] LABS: ANION GAP 10.3 mmol/L (8-16); CALCIUM 7.6 mg/dL (8.4-10.2); CREATININE, SERUM 0.84 mg/dL (0.57-1.11)
[2024-07-19 06:46] LABS: POTASSIUM 3.3 mmol/L (3.5-5.1)
[2024-07-19 12:46] LABS: ABG PCO2 38 mmHg (35-45); ABG PH 7.33 (7.35-7.45)
[2024-07-19 12:47] LABS: ABG HCO3 20 mmol/L (22-26); ABG PO2 99 mmHg (80-105); ABG TCO2 21
[2024-07-19] MEDS: PANTOPRAZOLE SODIUM 20 MG TABLET.DR PO SCH (16:31)
[2024-07-19] MEDS: METOLAZONE 5 MG TAB PO ONE (16:31)
[2024-07-19] MEDS: FUROSEMIDE INJ 10 MG/ML 4 ML VIAL IV SCH (16:31)
[2024-07-19] MEDS: POTASSIUM CHLORIDE 20 MEQ TAB CR PO ONE (16:31)
[2024-07-20] VITALS (8 sets, daily range): BP systolic 110–138; BP diastolic 70–94; PULSE 18–118; RESP 18–22; TEMP 97.8–98.2; O2SAT 96–99
[2024-07-20] MEDS: DIPHENHYDRAMINE HCL 25 MG CAP PO PRN (01:26)
[2024-07-20 05:49] LABS: BASOPHILS % 0.3 % (0.0-1.0); EOSINOPHILS # (AUTO) 0.1 (0.0-0.4); EOSINOPHILS % 0.5 % (0.0-6.0); HEMATOCRIT 27.2 % (34.2-44.1); HEMOGLOBIN 8.5 g/dL (12.0-16.0); LYMPHOCYTES # (AUTO) 1.4 (1.0-3.2); LYMPHOCYTES % 10.1 % (18.0-39.1); MEAN CORPUSCULAR HEMOGLOBIN 30.5 pg (28-32); MEAN CORPUSCULAR HGB CONC 31.3 g/dL (31-35); MEAN CORPUSCULAR VOLUME 97.5 fL (81-99); MONOCYTES % 7.1 % (4.4-11.3); NEUTROPHILS # (AUTO) 11.1 (2.1-6.9); NEUTROPHILS % 79.8 % (38.7-80.0); PLATELET COUNT 288 x10e3/uL (140-360); RED BLOOD COUNT 2.79 x10e6/uL (3.6-5.1); RED CELL DISTRIBUTION WIDTH 16.2 % (11.7-14.4); WHITE BLOOD COUNT 13.94 x10e3/uL (4.8-10.8)
[2024-07-20 06:35] LABS: ANION GAP 13.5 mmol/L (8-16); CALCIUM 8.5 mg/dL (8.4-10.2); CREATININE, SERUM 1.05 mg/dL (0.57-1.11); POTASSIUM 3.5 mmol/L (3.5-5.1)
[2024-07-20] MEDS: METOCLOPRAMIDE HCL 10 MG/2ML VIAL IV SCH (08:00)
[2024-07-20] MEDS: IRON-VITAMIN-MINERAL CAPSULE PO SCH (08:00)
[2024-07-20] MEDS: METOPROLOL TARTRATE 25 MG TAB PO ONE (15:20)
[2024-07-24 09:18] LABS: ABG HCO3 20 mmol/L (22-26); ABG PCO2 38 mmHg (35-45); ABG PH 7.33 (7.35-7.45); ABG PO2 99 mmHg (80-105); ABG TCO2 21
[2024-07-25 16:59] LABS: CHLAMYDIA TRACHOMATIS IGM <0.8 index (0.0-0.7); CHLAMYDOPHILA PSITTACI IGM <1:10 (Neg:<1:10)
[2024-07-25 17:12] LABS: MYCOPLASMA PNEUMO IGG 224
[2024-07-25 17:13] LABS: MYCOPLASMA PNEUMO IGM <770
== END 2024-07-20 19:09 | DRG 871 ==
LOC: ER 11:53 → ERHOLD 16:21 → MED/SURG2 18:30
PROVIDERS: ADMIT Internal Medicine; ATTEND Internal Medicine
PROC: 02HV33Z Insertion of Infusion Device into Superior Vena Cava, Percutaneous Approach (ICD-10-PCS; 2024-07-13)
PROC: B548ZZA Ultrasonography of Superior Vena Cava, Guidance (ICD-10-PCS; 2024-07-13)
PROC: 3E04329 Introduction of Other Anti-infective into Central Vein, Percutaneous Approach (ICD-10-PCS; 2024-07-13)
PROC: 0DBP8ZZ Excision of Rectum, Via Natural or Artificial Opening Endoscopic (ICD-10-PCS; 2024-07-18)
PROC: 0DBM8ZZ Excision of Descending Colon, Via Natural or Artificial Opening Endoscopic (ICD-10-PCS; 2024-07-18)
PROC: 0DBK8ZZ Excision of Ascending Colon, Via Natural or Artificial Opening Endoscopic (ICD-10-PCS; principal; 2024-07-18 16:03)
DX: A41.51 Sepsis due to Escherichia coli [E. coli] (principal); E43 Unspecified severe protein-calorie malnutrition; J18.9 Pneumonia, unspecified organism; N17.0 Acute kidney failure with tubular necrosis; N39.0 Urinary tract infection, site not specified; E87.20 Acidosis, unspecified; K92.1 Melena; K86.1 Other chronic pancreatitis; K86.2 Cyst of pancreas; J98.11 Atelectasis; J44.0 Chronic obstructive pulmonary disease with (acute) lower respiratory infection; J44.1 Chronic obstructive pulmonary disease with (acute) exacerbation; A04.72 Enterocolitis due to Clostridium difficile, not specified as recurrent; A41.89 Other specified sepsis; E87.6 Hypokalemia; K59.00 Constipation, unspecified; I10 Essential (primary) hypertension; D50.9 Iron deficiency anemia, unspecified; Z71.3 Dietary counseling and surveillance; Z68.24 Body mass index [BMI] 24.0-24.9, adult; E87.5 Hyperkalemia; S71.102A Unspecified open wound, left thigh, initial encounter; J45.909 Unspecified asthma, uncomplicated; L29.9 Pruritus, unspecified; L01.00 Impetigo, unspecified; L89.159 Pressure ulcer of sacral region, unspecified stage; X58.XXXA Exposure to other specified factors, initial encounter; Y92.009 Unspecified place in unspecified non-institutional (private) residence as the place of occurrence of the external cause; E78.5 Hyperlipidemia, unspecified; I25.10 Atherosclerotic heart disease of native coronary artery without angina pectoris; D12.2 Benign neoplasm of ascending colon; D12.4 Benign neoplasm of descending colon; R53.81 Other malaise; K62.1 Rectal polyp; E87.8 Other disorders of electrolyte and fluid balance, not elsewhere classified; I49.1 Atrial premature depolarization; R62.7 Adult failure to thrive; L89.316 Pressure-induced deep tissue damage of right buttock; L89.326 Pressure-induced deep tissue damage of left buttock; S71.101A Unspecified open wound, right thigh, initial encounter; Z87.891 Personal history of nicotine dependence; R60.0 Localized edema; E16.2 Hypoglycemia, unspecified; R00.0 Tachycardia, unspecified; T48.6X5A Adverse effect of antiasthmatics, initial encounter; Y92.230 Patient room in hospital as the place of occurrence of the external cause; M54.9 Dorsalgia, unspecified; G89.29 Other chronic pain; Z74.01 Bed confinement status; Z85.038 Personal history of other malignant neoplasm of large intestine; Z79.899 Other long term (current) drug therapy
CPT/HCPCS: 36415; 36569; 36600; 45385; 71045; 74018; 74177; 80048; 80053; 80061; 81001; 82270; 82607; 82746; 82805; 82948; 83540; 83605; 83735; 84100; 84443; 84466; 85025; 85045; 85610; 85730; 86631; 86738; 86850; 86900; 87086; 87186; 87324; 87449; 88305; 93306; 94640; 94660; 94799; 99252; 99284; J0692; J1650; J1756; J1940; J2003; J2270; J2470; J2543; J2765; J3480; J7030; J7042; J7050; J7070; J7512; Q9967

== ENCOUNTER 2024-07-21 05:24 | Emergency (ER) | payer MEDICARE ==
[~2024-07-21] VITALS: Ht 165.1 cm; Wt 65.8 kg
[2024-07-21 05:55] VITALS: PULSE 99; RESP 18; TEMP 98; O2SAT 100
== END 2024-07-21 07:57 ==
LOC: ER 05:38
DX: L89.322 Pressure ulcer of left buttock, stage 2 (principal); L89.312 Pressure ulcer of right buttock, stage 2; I10 Essential (primary) hypertension; E78.5 Hyperlipidemia, unspecified; I25.10 Atherosclerotic heart disease of native coronary artery without angina pectoris; M54.9 Dorsalgia, unspecified; G89.29 Other chronic pain; Z86.73 Personal history of transient ischemic attack (TIA), and cerebral infarction without residual deficits; Z85.41 Personal history of malignant neoplasm of cervix uteri; Z86.79 Personal history of other diseases of the circulatory system
CPT/HCPCS: 99284

== ENCOUNTER 2024-07-27 13:46 | Inpatient (IN) | payer MEDICARE ==
[~2024-07-27] VITALS: Ht 165.1 cm; Wt 65.8 kg
[2024-07-27 13:51] VITALS: TEMP 98.9
[2024-07-27 15:13] LABS: BASOPHILS % 0.2 % (0.0-1.0); HEMATOCRIT 34.3 % (34.2-44.1); HEMOGLOBIN 11.3 g/dL (12.0-16.0); LYMPHOCYTES # (AUTO) 1.6 (1.0-3.2); LYMPHOCYTES % 8.9 % (18.0-39.1); MEAN CORPUSCULAR HEMOGLOBIN 31.4 pg (28-32); MEAN CORPUSCULAR HGB CONC 32.9 g/dL (31-35); MEAN CORPUSCULAR VOLUME 95.3 fL (81-99); MONOCYTES % 5.8 % (4.4-11.3); NEUTROPHILS # (AUTO) 14.6 (2.1-6.9); NEUTROPHILS % 84.4 % (38.7-80.0); PLATELET COUNT 555 x10e3/uL (140-360); RED CELL DISTRIBUTION WIDTH 18.6 % (11.7-14.4); WHITE BLOOD COUNT 17.36 x10e3/uL (4.8-10.8)
[2024-07-27 15:30] LABS: INR 1.07; PROTHROMBIN TIME 14.5 seconds (11.9-14.5)
[2024-07-27 15:31] LABS: PARTIAL THROMBOPLASTIN TIME 30.4 seconds (23.8-35.5)
[2024-07-27 15:38] LABS: ALBUMIN 2.5 g/dL (3.5-5.0); ALBUMIN/GLOBULIN RATIO 0.5 (0.8-2.0); ANION GAP 22.4 mmol/L (8-16); BILIRUBIN,TOTAL 0.9 mg/dL (0.2-1.2); CALCIUM 8.8 mg/dL (8.4-10.2); CREATININE, SERUM 1.63 mg/dL (0.57-1.11); MAGNESIUM 1.8 MG/DL (1.3-2.1); TOTAL PROTEIN 7.4 g/dL (6.5-8.1)
[2024-07-27 15:44] LABS: TROPONIN I 0.018 ng/mL (0-0.300)
[2024-07-27 15:45] LABS: POTASSIUM 2.4 mmol/L (3.5-5.1)
[2024-07-27] MEDS: SODIUM CHLORIDE 0.9% 500ML 500 ML IV ONE (16:38)
[2024-07-27] MEDS: POTASSIUM CHLORIDE 10MEQ/100ML 100 ML IV SCH (16:40)
[2024-07-27] MEDS: POTASSIUM CHLORIDE 20 MEQ TAB CR PO STA (16:47)
[2024-07-27 17:00] LABS: BILIRUBIN,URINE MODERATE (NEGATIVE); CLARITY,URINE CLEAR (CLEAR); COLOR,URINE AMBER (YELLOW); GLUCOSE, URINE NEGATIVE (NEGATIVE); KETONES,URINE TRACE (NEGATIVE); LEUKOCYTE ESTERASE ,URINE NEGATIVE (NEGATIVE); NITRITE,URINE POSITIVE (NEGATIVE); PH,URINE 6 (5 - 7); PROTEIN,URINE DIPSTICK 1+ (NEGATIVE); URINE UROBILINOGEN 0.2 mg/dL (0.2 - 1)
[2024-07-27 17:02] LABS: BACTERIA,URINE MANY /HPF; EPITHELIAL CELLS,URINE MODERATE /LPF; MUCUS,URINE FEW; RBC,URINE 0-5 /HPF (0-5); WBC,URINE (MAN) 0-5 /HPF (0-5)
[2024-07-27 17:40] LABS: CORONAVIRUS COVID-19 AG NEGATIVE (NEGATIVE); INFLUENZA A AG NEGATIVE (NEGATIVE); INFLUENZA B AG NEGATIVE (NEGATIVE)
[2024-07-27] MEDS: POTASSIUM CHLORIDE 20 MEQ TAB CR PO ONE (19:22)
[2024-07-27] MEDS: ONDANSETRON HCL INJ 2MG/ML 2ML 2 MG/ML VIAL IV PRN (19:24)
[2024-07-27] MEDS: SODIUM CHLORIDE 0.9% 1000ML 1,000 ML IV ONE (19:26)
[2024-07-27 19:30] VITALS: PULSE 114; RESP 18; O2SAT 96
[2024-07-27 20:55] VITALS: BP 132/83; PULSE 100; RESP 20; TEMP 97.8; O2SAT 99
[2024-07-27 22:00] VITALS: BP 132/83; PULSE 100; RESP 20; TEMP 97.8; O2SAT 99
[2024-07-28] VITALS (10 sets, daily range): BP systolic 93–151; BP diastolic 71–91; PULSE 81–104; RESP 16–20; TEMP 97.1–98.5; O2SAT 92–98
[2024-07-28] MEDS ORDERED: DOCUSATE SODIUM 100 MG CAP PO PRN (02:00)
[2024-07-28] MEDS ORDERED: HYDRALAZINE HCL 20 MG/ML VIAL IV PRN (02:00)
[2024-07-28] MEDS ORDERED: BENZONATATE 100 MG CAP PO PRN (02:00)
[2024-07-28] MEDS ORDERED: DEXTROSE 50% SYRINGE 50 ML IV PRN (02:00)
[2024-07-28] MEDS ORDERED: SIMETHICONE 80 MG CHEW PO PRN (02:00)
[2024-07-28 05:58] LABS: BASOPHILS % 0.2 % (0.0-1.0); EOSINOPHILS % 0.1 % (0.0-6.0); HEMATOCRIT 30.3 % (34.2-44.1); HEMOGLOBIN 9.6 g/dL (12.0-16.0); LYMPHOCYTES # (AUTO) 1.4 (1.0-3.2); LYMPHOCYTES % 8.5 % (18.0-39.1); MEAN CORPUSCULAR HEMOGLOBIN 31.1 pg (28-32); MEAN CORPUSCULAR HGB CONC 31.7 g/dL (31-35); MEAN CORPUSCULAR VOLUME 98.1 fL (81-99); MONOCYTES # (AUTO) 0.9 (0.2-0.8); MONOCYTES % 5.5 % (4.4-11.3); NEUTROPHILS # (AUTO) 13.8 (2.1-6.9); NEUTROPHILS % 85.1 % (38.7-80.0); PLATELET COUNT 446 x10e3/uL (140-360); RED BLOOD COUNT 3.09 x10e6/uL (3.6-5.1); RED CELL DISTRIBUTION WIDTH 19.2 % (11.7-14.4); WHITE BLOOD COUNT 16.21 x10e3/uL (4.8-10.8)
[2024-07-28 06:27] LABS: ALBUMIN 2.1 g/dL (3.5-5.0); ALBUMIN/GLOBULIN RATIO 0.5 (0.8-2.0); ANION GAP 21.2 mmol/L (8-16); BILIRUBIN,TOTAL 0.6 mg/dL (0.2-1.2); CALCIUM 8.3 mg/dL (8.4-10.2); CHOL/HDL RATIO 2.1 (3.0-3.6); CREATININE, SERUM 1.27 mg/dL (0.57-1.11); MAGNESIUM 1.7 MG/DL (1.3-2.1); TOTAL PROTEIN 6.6 g/dL (6.5-8.1)
[2024-07-28 06:28] LABS: POTASSIUM 3.2 mmol/L (3.5-5.1)
[2024-07-28 06:34] LABS: TROPONIN I 0.012 ng/mL (0-0.300)
[2024-07-28] MEDS ORDERED: REGLAN5 MG PO (06:45)
[2024-07-28] MEDS ORDERED: TYLENOL325 MG PO (06:45)
[2024-07-28] MEDS ORDERED: BUDESONIDE0.5 MG/2 M NEB (06:45)
[2024-07-28] MEDS ORDERED: IPRAT-ALBUT 0.5-3 ML IN (06:45)
[2024-07-28] MEDS ORDERED: BACLOFEN5 MG PO (06:45)
[2024-07-28] MEDS ORDERED: NYSTATIN1 EAC3 TOP (06:45)
[2024-07-28] MEDS ORDERED: HYDROCODON-ACE1 EAC9 (06:45)
[2024-07-28] MEDS ORDERED: METOPROLOL TART25 MG PO (06:45)
[2024-07-28] MEDS ORDERED: BENZONATATE100 MG PO (06:45)
[2024-07-28] MEDS ORDERED: PROTONIX20 MG PO (06:45)
[2024-07-28] MEDS ORDERED: BIOTENE ORALBAL42 GM PO (06:45)
[2024-07-28] MEDS ORDERED: LEVALBUTER1.25 MG/3 INH (06:45)
[2024-07-28] MEDS: PANTOPRAZOLE SOD 40 MG TABEC PO SCH (07:30)
[2024-07-28] MEDS: METOPROLOL TARTRATE 25 MG TAB PO SCH (09:07)
[2024-07-28] MEDS: ACETAMINOPHEN 325 MG TAB PO PRN (09:08)
[2024-07-28] MEDS: LIDOCAINE 4% PATCH TP PRN (13:58)
[2024-07-28 14:16] LABS: TROPONIN I 0.012 ng/mL (0-0.300)
[2024-07-28] MEDS: HYDROCODONE/APAP 5MG-325MG TAB PO PRN (16:25)
[2024-07-28] MEDS: DEXTROSE 5%/0.9% SOD CHL 1,000 ML IV SCH (16:25)
[2024-07-28] MEDS: ENOXAPARIN SOD INJ 40 MG/0.4 ML SYR SC SCH (16:35)
[2024-07-28] MEDS ORDERED: METOPROLOL TARTRATE 25 MG TAB PO SCH (17:00)
[2024-07-28] MEDS: DIPHENHYDRAMINE HCL 25 MG CAP PO PRN (22:57)
[2024-07-28] MEDS: ATORVASTATIN 20 MG TAB PO SCH (22:58)
[2024-07-29] VITALS (9 sets, daily range): BP systolic 101–110; BP diastolic 63–80; PULSE 90–106; RESP 16–20; TEMP 97.8–98.6; O2SAT 94–96
[2024-07-29 08:25] LABS: BASOPHILS # (AUTO) 0.1 (0.0-0.1); BASOPHILS % 0.4 % (0.0-1.0); EOSINOPHILS % 0.3 % (0.0-6.0); HEMATOCRIT 28.4 % (34.2-44.1); HEMOGLOBIN 9.1 g/dL (12.0-16.0); LYMPHOCYTES # (AUTO) 1.6 (1.0-3.2); MEAN CORPUSCULAR HEMOGLOBIN 31.7 pg (28-32); MONOCYTES % 6.7 % (4.4-11.3); NEUTROPHILS # (AUTO) 11.5 (2.1-6.9); NEUTROPHILS % 80.8 % (38.7-80.0); PLATELET COUNT 524 x10e3/uL (140-360); RED BLOOD COUNT 2.87 x10e6/uL (3.6-5.1); RED CELL DISTRIBUTION WIDTH 19.5 % (11.7-14.4); WHITE BLOOD COUNT 14.23 x10e3/uL (4.8-10.8)
[2024-07-29 08:53] LABS: ALBUMIN 2.1 g/dL (3.5-5.0); ALBUMIN/GLOBULIN RATIO 0.5 (0.8-2.0); ANION GAP 15.4 mmol/L (8-16); BILIRUBIN,TOTAL 0.6 mg/dL (0.2-1.2); CALCIUM 8.3 mg/dL (8.4-10.2); CREATININE, SERUM 0.97 mg/dL (0.57-1.11); TOTAL PROTEIN 6.2 g/dL (6.5-8.1)
[2024-07-29 08:55] LABS: POTASSIUM 2.4 mmol/L (3.5-5.1)
[2024-07-29] MEDS: ONDANSETRON HCL INJ 2MG/ML 2ML 2 MG/ML VIAL IV PRN (09:22)
[2024-07-29] MEDS: POTASSIUM CHLORIDE 10MEQ/100ML 100 ML IV ONE (09:22)
[2024-07-29] MEDS: POTASSIUM CHLORIDE 20 MEQ TAB CR PO STA (09:22)
[2024-07-29] MEDS: POTASSIUM CHLORIDE 20 MEQ TAB CR PO ONE (16:34)
[2024-07-29] MEDS: BACLOFEN 10 MG TAB PO PRN (16:34)
[2024-07-29] MEDS: MELATONIN 5 MG TABLET PO PRN (21:28)
[2024-07-29 22:01] LABS: ANION GAP 13.5 mmol/L (8-16); CALCIUM 8.2 mg/dL (8.4-10.2); CREATININE, SERUM 0.86 mg/dL (0.57-1.11)
[2024-07-29 22:04] LABS: POTASSIUM 3.5 mmol/L (3.5-5.1)
[2024-07-30] VITALS (9 sets, daily range): BP systolic 112–119; BP diastolic 76–85; PULSE 89–101; RESP 16–19; TEMP 97.7–98.5; O2SAT 93–98
[2024-07-30 06:42] LABS: BASOPHILS # (AUTO) 0.1 (0.0-0.1); BASOPHILS % 0.5 % (0.0-1.0); EOSINOPHILS # (AUTO) 0.1 (0.0-0.4); EOSINOPHILS % 0.4 % (0.0-6.0); HEMATOCRIT 28.4 % (34.2-44.1); HEMOGLOBIN 8.8 g/dL (12.0-16.0); LYMPHOCYTES # (AUTO) 1.4 (1.0-3.2); MEAN CORPUSCULAR HEMOGLOBIN 31.8 pg (28-32); MEAN CORPUSCULAR VOLUME 102.5 fL (81-99); MONOCYTES # (AUTO) 0.9 (0.2-0.8); MONOCYTES % 6.8 % (4.4-11.3); NEUTROPHILS # (AUTO) 10.5 (2.1-6.9); NEUTROPHILS % 80.6 % (38.7-80.0); PLATELET COUNT 476 x10e3/uL (140-360); RED BLOOD COUNT 2.77 x10e6/uL (3.6-5.1)
[2024-07-30 06:56] LABS: ANION GAP 13.2 mmol/L (8-16); CREATININE, SERUM 0.75 mg/dL (0.57-1.11)
[2024-07-30 06:59] LABS: POTASSIUM 3.2 mmol/L (3.5-5.1)
[2024-07-30] MEDS: POTASSIUM CHLORIDE 20 MEQ TAB CR PO PRN (08:06)
[2024-07-31] VITALS (9 sets, daily range): BP systolic 103–157; BP diastolic 76–93; PULSE 88–107; RESP 16–20; TEMP 97.2–98.3; O2SAT 94–97
[2024-07-31 09:00] LABS: BASOPHILS % 0.2 % (0.0-1.0); EOSINOPHILS # (AUTO) 0.1 (0.0-0.4); EOSINOPHILS % 0.6 % (0.0-6.0); HEMATOCRIT 24.7 % (34.2-44.1); HEMOGLOBIN 7.2 g/dL (12.0-16.0); LYMPHOCYTES # (AUTO) 1.2 (1.0-3.2); LYMPHOCYTES % 12.4 % (18.0-39.1); MEAN CORPUSCULAR HEMOGLOBIN 31.3 pg (28-32); MEAN CORPUSCULAR HGB CONC 29.1 g/dL (31-35); MEAN CORPUSCULAR VOLUME 107.4 fL (81-99); MONOCYTES # (AUTO) 0.8 (0.2-0.8); NEUTROPHILS # (AUTO) 7.3 (2.1-6.9); NEUTROPHILS % 78.2 % (38.7-80.0); PLATELET COUNT 367 x10e3/uL (140-360); RED CELL DISTRIBUTION WIDTH 20.6 % (11.7-14.4); WHITE BLOOD COUNT 9.38 x10e3/uL (4.8-10.8)
[2024-07-31 14:39] LABS: HEMATOCRIT 31.5 % (34.2-44.1)
[2024-07-31 15:08] LABS: ANION GAP 12.4 mmol/L (8-16); CALCIUM 8.2 mg/dL (8.4-10.2); CREATININE, SERUM 0.69 mg/dL (0.57-1.11)
[2024-07-31 15:13] LABS: POTASSIUM 3.4 mmol/L (3.5-5.1)
[2024-07-31] MEDS: CYANOCOBALAMIN INJ 1,000 MCG/ML VIAL IM SCH (15:18)
[2024-07-31] MEDS: EPOETIN ALFA-EPBX 10,000 UNIT/ML VIAL SC ONE (15:18)
[2024-07-31] MEDS: IRON SUCROSE 100 MG in SODIUM CHLORIDE 0.9% 100 ML IV SCH (15:18)
[2024-07-31] MEDS: SODIUM CHLORIDE 0.9% 250ML 250 ML ONE (15:58)
[2024-07-31] MEDS: ALBUTEROL/IPRATROPIUM 3 ML NEB NEB PRN (19:15)
[2024-07-31] MEDS: BUDESONIDE 0.5MG/2 ML NEB NEB PRN (19:16)
[2024-08-01] VITALS (10 sets, daily range): BP systolic 111–143; BP diastolic 74–89; PULSE 92–115; RESP 16–18; TEMP 97.4–98.3; O2SAT 93–97
[2024-08-01 07:27] LABS: ANION GAP 13.4 mmol/L (8-16); CALCIUM 8.2 mg/dL (8.4-10.2); CREATININE, SERUM 0.71 mg/dL (0.57-1.11)
[2024-08-01 07:33] LABS: POTASSIUM 3.4 mmol/L (3.5-5.1)
[2024-08-01 14:58] LABS: HEMATOCRIT 30.3 % (34.2-44.1); HEMOGLOBIN 9.2 g/dL (12.0-16.0)
[2024-08-01] MEDS ORDERED: PANTOPRAZOLE SO40 MG PO (15:19)
[2024-08-01] MEDS ORDERED: LOVENOX40 MG/0.4 SC (15:19)
[2024-08-01] MEDS ORDERED: LOPRESSOR25 MG PO (15:19)
[2024-08-01] MEDS ORDERED: AMOX TR-K CLV1 EAC2 PO (15:29)
== END 2024-08-01 20:11 | DRG 439 ==
LOC: ER 14:16 → ERHOLD 17:21 → MED/SURG3 20:24
PROVIDERS: ADMIT Internal Medicine; ATTEND Internal Medicine
DX: K85.90 Acute pancreatitis without necrosis or infection, unspecified (principal); N17.9 Acute kidney failure, unspecified; N39.0 Urinary tract infection, site not specified; E87.6 Hypokalemia; I10 Essential (primary) hypertension; I35.8 Other nonrheumatic aortic valve disorders; J44.9 Chronic obstructive pulmonary disease, unspecified; Z87.891 Personal history of nicotine dependence; R07.89 Other chest pain; R00.0 Tachycardia, unspecified; K52.89 Other specified noninfective gastroenteritis and colitis; G89.29 Other chronic pain; M54.9 Dorsalgia, unspecified; R53.81 Other malaise; Z71.3 Dietary counseling and surveillance; Z68.24 Body mass index [BMI] 24.0-24.9, adult; Z11.52 Encounter for screening for COVID-19; Z86.73 Personal history of transient ischemic attack (TIA), and cerebral infarction without residual deficits; Z74.01 Bed confinement status; Z86.0100 Personal history of colon polyps, unspecified; Z85.41 Personal history of malignant neoplasm of cervix uteri; Z79.899 Other long term (current) drug therapy
CPT/HCPCS: 36415; 51700; 71045; 74176; 80048; 80053; 80061; 81001; 82550; 83690; 83735; 83880; 84484; 85014; 85018; 85025; 85610; 85730; 87040; 87086; 93005; 94640; 94799; 99252; 99285; J0696; J1650; J1756; J2405; J2470; J3420; J3480; J7030; J7040; J7042; J7050